=== PATIENT | male | born 1995 | race Caucasian/White ===

== ENCOUNTER 2023-11-19 11:29 | Emergency (ER) | payer MEDICAID ==
[~2023-11-19] VITALS: Ht 175.3 cm; Wt 87.5 kg
[2023-11-19 11:35] VITALS: TEMP 98.1
[2023-11-19 14:48] VITALS: BP 136/98; PULSE 88; RESP 15; O2SAT 99
== END 2023-11-19 15:44 | disposition home or self-care (01) ==
LOC: ER 11:30
DX: S83.92XA Sprain of unspecified site of left knee, initial encounter (principal); W19.XXXA Unspecified fall, initial encounter; Y93.89 Activity, other specified; Y92.89 Other specified places as the place of occurrence of the external cause; Y99.8 Other external cause status
CPT/HCPCS: 29530; 73564; 99283